=== PATIENT | female | born 1930 | race Caucasian/White ===

== ENCOUNTER 2017-09-18 10:37 | Emergency (ER) | payer OTHER ==
[~2017-09-18] VITALS: Ht 160 cm; Wt 72.8 kg
[2017-09-18 15:11] VITALS: BP 138/86
== END 2017-09-18 15:01 | disposition home or self-care (01) ==
LOC: EME 10:37
DX: S46.212A Strain of muscle, fascia and tendon of other parts of biceps, left arm, initial encounter (principal); S40.022A Contusion of left upper arm, initial encounter; X50.1XXA Overexertion from prolonged static or awkward postures, initial encounter; Z79.82 Long term (current) use of aspirin
CPT/HCPCS: 73060; 93971; 99281; 99284